=== PATIENT | male | born 1990 | race Caucasian/White ===

== ENCOUNTER 2021-09-06 10:17 | Inpatient (IN) | payer OTHER ==
[2021-09-06 12:39] LABS: BASO % 0.2 % (0-2.0); EOS % 1.3 % (0-4.5); HEMATOCRIT 44.2 % (35.4-49); HEMOGLOBIN 15.2 GM/dL (11.7-16.9); LYMPH % 17.9 % (8-40); MCH 32.8 pg (25.7-33.7); MCHC 34.3 g/dl (32.0-35.9); MEAN CELL VOLUME 95.7 fl (80-96); MEAN PLT VOLUME 8.5 fl (7.5-11.1); MONO % 12.8 % (3.8-10.2); NEUT % 67.8 % (42.8-82.8); PLATELET COUNT 139 10^3/uL (134-434); RBC 4.62 M/mm3 (4.00-5.60); WHITE BLOOD COUNT 6.4 K/mm3 (4.0-10.0)
[2021-09-06 12:45] LABS: URINE APPEARANCE CLEAR; URINE BILIRUBIN NEGATIVE (NEGATIVE); URINE COLOR YELLOW; URINE GLUCOSE (UA) NEGATIVE (NEGATIVE); URINE KETONE 1+ (NEGATIVE); URINE LEUK ESTERASE NEGATIVE (NEGATIVE); URINE NITRITE NEGATIVE (NEGATIVE); URINE PROTEIN NEGATIVE (NEGATIVE); URINE UROBILINOGEN 0.2 mg/dL (0.2-1.0)
[2021-09-06 12:54] LABS: COCAINE, UR NEGATIVE (NEGATIVE); OPIATES, URI NEGATIVE (NEGATIVE)
[2021-09-06 12:55] LABS: METHADONE, UR NEGATIVE (NEGATIVE); PHENCYCLIDINE,URINE NEGATIVE (NEGATIVE); URINE BARBITURATES NEGATIVE (NEGATIVE); URINE BENZODIAZEPINES NEGATIVE (NEGATIVE)
[2021-09-06 12:59] LABS: URINE AMPHETAMINES NEGATIVE (NEGATIVE)
[2021-09-06 14:05] LABS: CHLORIDE 101 mmol/L (98-107); SODIUM 135 mmol/L (136-145)
[2021-09-06 14:07] LABS: CALCIUM 9.4 mg/dL (8.5-10.1)
[2021-09-06 14:08] LABS: ALBUMIN 4.2 g/dl (3.4-5.0); ANION GAP 11 MMOL/L (8-16); BLOOD UREA NITROGEN 8.6 mg/dL (7-18); CO2 23 mmol/L (21-32); GLUCOSE,RANDOM 116 mg/dL (74-106); LIPASE 249 U/L (73-393)
[2021-09-06 14:11] LABS: CREATININE 0.9 mg/dL (0.55-1.3); SGOT/AST 313 U/L (15-37); SGPT/ALT 250 U/L (13-61)
[2021-09-06 14:12] LABS: BILIRUBIN,TOTAL 0.6 mg/dL (0.2-1); TOT PROT 8.5 g/dl (6.4-8.2)
[2021-09-06 14:14] LABS: ALK PHOS 138 U/L (45-117)
[2021-09-06] MEDS ORDERED: SODIUM CHLORIDE 1,000 ML IV STA (14:22)
[2021-09-06] MEDS ORDERED: diazePAM CARPU-JECT 10 MG/2 ML DISP.SYRIN IVPUSH ONE (14:22)
[2021-09-06] MEDS ORDERED: diazePAM CARPU-JECT 10 MG/2 ML DISP.SYRIN ONE (14:48)
[2021-09-06 18:38] LABS: INR 0.97 (0.83-1.09); PROTHROMBIN TIME (PATIENT) 11.4 SEC (9.7-13.0)
[2021-09-06] MEDS ORDERED: LORazepam 2 MG/ML SDV VIAL IVPUSH PRN (20:50)
[2021-09-06] MEDS ORDERED: LORazepam 1 MG TABLET PO PRN (21:34)
[2021-09-07] MEDS: LORazepam 1 MG TABLET PO SCH ×4 (01:28→17:07)
[2021-09-07 04:50] VITALS: BMI 28.7
[2021-09-07 09:45] LABS: BASO % 0.3 % (0-2.0); EOS % 0.9 % (0-4.5); HEMATOCRIT 41.8 % (35.4-49); HEMOGLOBIN 14.3 GM/dL (11.7-16.9); MCH 32.8 pg (25.7-33.7); MCHC 34.2 g/dl (32.0-35.9); MEAN CELL VOLUME 95.8 fl (80-96); MEAN PLT VOLUME 8.4 fl (7.5-11.1); MONO % 11.3 % (3.8-10.2); NEUT % 75.5 % (42.8-82.8); PLATELET COUNT 149 10^3/uL (134-434); RBC 4.37 M/mm3 (4.00-5.60); RDW 13.2 % (11.9-15.9); WHITE BLOOD COUNT 8.8 K/mm3 (4.0-10.0)
[2021-09-07 10:06] LABS: ALBUMIN 4.1 g/dl (3.4-5.0); BLOOD UREA NITROGEN 7.6 mg/dL (7-18); CALCIUM 9.2 mg/dL (8.5-10.1)
[2021-09-07] MEDS: FOLIC ACID 1 MG TABLET (FP) PO SCH (10:06)
[2021-09-07] MEDS: THIAMINE HCL 100 MG TABLET (FP) PO SCH (10:06)
[2021-09-07 10:09] LABS: CREATININE 0.8 mg/dL (0.55-1.3); PHOSPHOROUS 3.6 mg/dL (2.5-4.9)
[2021-09-07 10:11] LABS: BILIRUBIN,TOTAL 0.8 mg/dL (0.2-1); TOT PROT 8.1 g/dl (6.4-8.2)
[2021-09-07] MEDS ORDERED: LORazepam 2 MG/ML SDV VIAL IVPUSH ONE (11:45)
[2021-09-07] MEDS ORDERED: LORazepam 2 MG/ML SDV VIAL ONE ×2 (11:57→12:31)
[2021-09-07] MEDS ORDERED: LORazepam 2 MG/ML SDV VIAL IVPB ONE (12:00)
[2021-09-07] MEDS ORDERED: LORazepam 2 MG/ML SDV VIAL IM ONE ×2 (12:00→13:00)
[2021-09-07] MEDS ORDERED: HALOPERIDOL LACTATE 5 MG/ML ONE ×2 (12:02→12:30)
[2021-09-07] MEDS ORDERED: HALOPERIDOL LACTATE 5 MG/ML IM ONE ×2 (13:30→14:30)
[2021-09-07] MEDS ORDERED: FOLIC ACID INJECTION - 1 MG, THIAMINE HCL 100 MG, MULTIVIT INJECTION ADULT 10 ML in SOD... IVPB ONE (14:30)
[2021-09-07 15:18] LABS: HIV INTERPRETATION NEGATIVE (NEGATIVE)
[2021-09-07] MEDS ORDERED: LORazepam 2 MG/ML SDV VIAL IVPUSH PRN (18:17)
[2021-09-08] MEDS: LORazepam 1 MG TABLET PO SCH ×3 (00:09→10:34)
[2021-09-08] MEDS: THIAMINE HCL 100 MG TABLET (FP) PO SCH (10:34)
[2021-09-08] MEDS: FOLIC ACID 1 MG TABLET (FP) PO SCH (10:34)
[2021-09-08 13:26] LABS: HEMATOCRIT 40.7 % (35.4-49); MCH 32.8 pg (25.7-33.7); MCHC 34.4 g/dl (32.0-35.9); MEAN CELL VOLUME 95.1 fl (80-96); MEAN PLT VOLUME 7.9 fl (7.5-11.1); PLATELET COUNT 158 10^3/uL (134-434); RBC 4.27 M/mm3 (4.00-5.60); RDW 13.2 % (11.9-15.9); WHITE BLOOD COUNT 6.9 K/mm3 (4.0-10.0)
[2021-09-08 13:49] LABS: CALCIUM 8.7 mg/dL (8.5-10.1)
[2021-09-08 13:50] LABS: ALBUMIN 3.6 g/dl (3.4-5.0); BLOOD UREA NITROGEN 5.7 mg/dL (7-18); MAGNESIUM 2.5 mg/dL (1.8-2.4)
[2021-09-08 13:53] LABS: CREATININE 0.8 mg/dL (0.55-1.3)
[2021-09-08 13:54] LABS: PHOSPHOROUS 4.4 mg/dL (2.5-4.9)
[2021-09-08 13:55] LABS: BILIRUBIN,TOTAL 0.7 mg/dL (0.2-1); TOT PROT 7.4 g/dl (6.4-8.2)
[2021-09-08] MEDS ORDERED: POTASSIUM CHLORIDE ORAL LIQUID 20 MEQ/15 ML PO ONE (14:15)
[2021-09-08 14:36] VITALS: BP 135/88; PULSE 90; TEMP 97.7
[2021-09-09] MEDS ORDERED: LORazepam 0.5 MG TABLET PO PRN
[2021-09-09] MEDS ORDERED: LORazepam 0.5 MG TABLET PO SCH (05:00)
[2021-09-10] MEDS ORDERED: LORazepam 0.5 MG TABLET PO ONE (05:00)
== END 2021-09-08 15:10 | disposition other institution (70) | DRG 254 ==
LOC: JER 10:17 → JERBED 18:12 → J6S 09-07 00:26
PROVIDERS: ADMIT Internal Medicine; ATTEND Internal Medicine
DX: T18.108A Unspecified foreign body in esophagus causing other injury, initial encounter (principal); X58.XXXA Exposure to other specified factors, initial encounter; Y93.9 Activity, unspecified; Y92.89 Other specified places as the place of occurrence of the external cause; Y99.9 Unspecified external cause status; F10.239 Alcohol dependence with withdrawal, unspecified; K76.0 Fatty (change of) liver, not elsewhere classified; R74.01 Elevation of levels of liver transaminase levels
CPT/HCPCS: 36415; 70360-TC-FY; 70490-TC; 71250-TC; 74176-TC; 76705-TC; 80053; 80307; 81003; 83690; 83735; 84100; 85025; 85027; 85610; 86705; 86708; 86850; 86900; 86901; 87340; 87389; 87517; 87522; 93005; 93010; 99285-25; C9803; U0003; U0005

== ENCOUNTER 2021-09-08 15:47 | Inpatient (IN) | payer OTHER ==
[2021-09-08] MEDS ORDERED: MAGNESIUM CITRATE 300 ML BOTTLE PO PRN (17:47)
[2021-09-08] MEDS ORDERED: ONDANSETRON *ODT* 4 MG TABLET SL PRN (17:47)
[2021-09-08] MEDS ORDERED: METHOCARBAMOL 500 MG TABLET PO PRN (17:47)
[2021-09-08] MEDS ORDERED: hydrOXYzine PAMOATE 25 MG CAPSULE (FP) PO PRN (17:47)
[2021-09-08] MEDS ORDERED: IBUPROFEN 400 MG TABLET (FP) PO PRN (17:47)
[2021-09-08] MEDS ORDERED: MAGNESIUM HYDROX 2400MG/30ML ORAL SUSPENSION 30 ML CUP PO PRN (17:47)
[2021-09-08] MEDS ORDERED: MENTHOL/PHENOL 1 EACH UD MM PRN (17:47)
[2021-09-08] MEDS ORDERED: MAG HYDROX/AL HYDROX/SIMETH 30 ML UNIT-DOSE CUP PO PRN (17:47)
[2021-09-08] MEDS ORDERED: BISMUTH SUBSALICYLATE 524 MG/30 ML PO PRN (17:47)
[2021-09-08] MEDS ORDERED: ACETAMINOPHEN 325 MG TABLET (FP) PO PRN ×2 (17:47)
[2021-09-08 17:52] VITALS: BMI 26.6
[2021-09-08] MEDS ORDERED: diazePAM 5 MG TABLET PO PRN (17:52)
[2021-09-08] MEDS ORDERED: guaiFENesin 200 MG/10 ML 10 ML UNIT-DOSE CUPS PO PRN (17:54)
[2021-09-08] MEDS: diazePAM 5 MG TABLET PO SCH ×2 (20:42→22:21)
[2021-09-08] MEDS: THIAMINE HCL 100 MG TABLET (FP) PO SCH (22:20)
[2021-09-08] MEDS: MELATONIN 5 MG TABLETS PO SCH (22:20)
[2021-09-09] MEDS: diazePAM 5 MG TABLET PO SCH ×4 (05:22→22:09)
[2021-09-09] MEDS: PRENATAL VITAMINS W/ FOLIC ACID TABLET (FP) PO SCH (10:33)
[2021-09-09] MEDS: MELATONIN 5 MG TABLETS PO SCH (22:08)
[2021-09-09] MEDS: THIAMINE HCL 100 MG TABLET (FP) PO SCH (22:09)
[2021-09-10] MEDS: diazePAM 5 MG TABLET PO SCH ×2 (06:15→17:45)
[2021-09-10] MEDS: PRENATAL VITAMINS W/ FOLIC ACID TABLET (FP) PO SCH (10:26)
[2021-09-10] MEDS: THIAMINE HCL 100 MG TABLET (FP) PO SCH (22:06)
[2021-09-10] MEDS: MELATONIN 5 MG TABLETS PO SCH (22:07)
[2021-09-11] MEDS ORDERED: diazePAM 5 MG TABLET PO ONE (06:00)
[2021-09-11 09:29] VITALS: BP 114/70; PULSE 79; TEMP 97.7
[2021-09-11] MEDS: PRENATAL VITAMINS W/ FOLIC ACID TABLET (FP) PO SCH (09:39)
== END 2021-09-11 09:38 | disposition home or self-care (01) | DRG 775 ==
LOC: YASAS 15:47 → Y3N 17:51
PROVIDERS: ADMIT Allergy & Immunology; ATTEND Allergy & Immunology
PROC: HZ2ZZZZ Detoxification Services for Substance Abuse Treatment (ICD-10-PCS; principal; 2021-09-08)
DX: F10.230 Alcohol dependence with withdrawal, uncomplicated (principal); R00.0 Tachycardia, unspecified; Z87.891 Personal history of nicotine dependence
CPT/HCPCS: 36415; 86780

== ENCOUNTER 2022-04-28 19:39 | Emergency (ER) | payer OTHER ==
[2022-04-28 19:53] VITALS: BP 141/96; PULSE 100; RESP 20; TEMP 98.1; BMI 26.6
[2022-04-28 21:34] LABS: EOS % 4.1 % (0-4.5); HEMATOCRIT 44.1 % (35.4-49); HEMOGLOBIN 14.9 GM/dL (11.7-16.9); LYMPH % 43.5 % (8-40); MCH 31.5 pg (25.7-33.7); MCHC 33.7 g/dl (32.0-35.9); MEAN CELL VOLUME 93.5 fl (80-96); MONO % 9.6 % (3.8-10.2); NEUT % 41.8 % (42.8-82.8); PLATELET COUNT 268 10^3/uL (134-434); RBC 4.72 M/mm3 (4.00-5.60); RDW 14.1 % (11.9-15.9); WHITE BLOOD COUNT 5.2 K/mm3 (4.0-10.0)
[2022-04-28 21:57] LABS: CALCIUM 8.4 mg/dL (8.5-10.1)
[2022-04-28 21:58] LABS: ACTIVATED PTT 34.6 SECONDS (25.2-36.5); BLOOD UREA NITROGEN 5.2 mg/dL (7-18); INR 0.95 (0.83-1.09); PROTHROMBIN TIME (PATIENT) 10.9 SEC (9.7-13.0)
[2022-04-28 22:01] LABS: CREATININE 0.8 mg/dL (0.55-1.3)
== END 2022-04-29 00:07 | disposition home or self-care (01) ==
LOC: JER 19:39
DX: S21.139A Puncture wound without foreign body of unspecified front wall of thorax without penetration into thoracic cavity, initial encounter (principal); X99.9XXA Assault by unspecified sharp object, initial encounter
CPT/HCPCS: 36415; 71260-TC; 80048; 84484; 85025; 85610; 85730; 86850; 86900; 86901; 93005; 93010; 99284-25; Q9967

== ENCOUNTER 2022-05-21 13:24 | Emergency (ER) | payer OTHER ==
[2022-05-21 13:44] VITALS: BP 154/100; PULSE 92; RESP 18; TEMP 98.2; BMI 25.0
== END 2022-05-21 15:10 | disposition left against medical advice (07) ==
LOC: JER 13:24
DX: K92.0 Hematemesis (principal)
CPT/HCPCS: 99281-25

== ENCOUNTER 2022-05-28 08:43 | Emergency (ER) | payer OTHER ==
[2022-05-28 08:51] VITALS: BP 142/94; PULSE 86; RESP 18; TEMP 98.9; BMI 25.7
[2022-05-28] MEDS ORDERED: SODIUM CHLORIDE 0.9% 500 ML INFUS.BAG IV ONE ×2 (09:41→11:40)
[2022-05-28] MEDS ORDERED: ONDANSETRON 4 MG/2 ML VIAL IVPUSH ONE (09:41)
[2022-05-28] MEDS ORDERED: ONDANSETRON 4 MG/2 ML VIAL ONE (09:44)
[2022-05-28] MEDS ORDERED: LORazepam 2 MG/ML SDV VIAL IVPUSH ONE (10:00)
[2022-05-28 10:53] LABS: BASO % 0.6 % (0-2.0); EOS % 0.8 % (0-4.5); HEMATOCRIT 42.7 % (35.4-49); HEMOGLOBIN 14.6 GM/dL (11.7-16.9); MCHC 34.1 g/dl (32.0-35.9); MEAN CELL VOLUME 93.9 fl (80-96); MEAN PLT VOLUME 7.6 fl (7.5-11.1); MONO % 13.8 % (3.8-10.2); NEUT % 62.8 % (42.8-82.8); PLATELET COUNT 153 10^3/uL (134-434); RBC 4.55 M/mm3 (4.00-5.60); RDW 13.8 % (11.9-15.9); WHITE BLOOD COUNT 5.2 K/mm3 (4.0-10.0)
[2022-05-28 10:58] LABS: EPI CELLS 6 /uL (0-25.1); HYALINE CASTS 2 /uL (0-3.1); URINE APPEARANCE CLEAR; URINE BACTERIA 20 /uL (0-1359); URINE BILIRUBIN 1+ (NEGATIVE); URINE COLOR DK YELLOW; URINE GLUCOSE (UA) NEGATIVE (NEGATIVE); URINE KETONE 1+ (NEGATIVE); URINE LEUK ESTERASE NEGATIVE (NEGATIVE); URINE NITRITE NEGATIVE (NEGATIVE); URINE PROTEIN 1+ (NEGATIVE); URINE RBC 16 /uL (0-23.9); URINE WBC 9 /uL (0-25.8)
[2022-05-28 12:08] LABS: ALBUMIN 4.4 g/dl (3.4-5.0); BILIRUBIN,TOTAL 0.8 mg/dL (0.2-1); BLOOD UREA NITROGEN 8.2 mg/dL (7-18); CALCIUM 9.4 mg/dL (8.5-10.1); CREATININE 0.7 mg/dL (0.55-1.3)
== END 2022-05-28 14:30 | disposition home or self-care (01) ==
LOC: JER 08:43
PROC: 3E02329 Introduction of Other Anti-infective into Muscle, Percutaneous Approach (ICD-10-PCS; principal; 2022-05-28)
PROC: 3E033NZ Introduction of Analgesics, Hypnotics, Sedatives into Peripheral Vein, Percutaneous Approach (ICD-10-PCS; 2022-05-28)
PROC: 3E033GC Introduction of Other Therapeutic Substance into Peripheral Vein, Percutaneous Approach (ICD-10-PCS; 2022-05-28)
DX: N30.00 Acute cystitis without hematuria (principal); F10.10 Alcohol abuse, uncomplicated
CPT/HCPCS: 36415; 80053; 81003; 83690; 85025; 87086; 87491; 87591; 93005; 93010; 99284-25

== ENCOUNTER 2022-05-28 15:24 | Inpatient (IN) | payer OTHER ==
[2022-05-28 16:42] VITALS: BMI 24.1
[2022-05-28] MEDS ORDERED: ONDANSETRON *ODT* 4 MG TABLET SL PRN (20:18)
[2022-05-28] MEDS ORDERED: MAGNESIUM HYDROX 2400MG/30ML ORAL SUSPENSION 30 ML CUP PO PRN (20:18)
[2022-05-28] MEDS ORDERED: BENZOCAINE/MENTHOL (CHLORASEPTIC ) LOZENGE MM PRN (20:18)
[2022-05-28] MEDS ORDERED: IBUPROFEN 400 MG TABLET (FP) PO PRN (20:18)
[2022-05-28] MEDS ORDERED: IBUPROFEN 600 MG TABLET (FP) PO PRN (20:18)
[2022-05-28] MEDS ORDERED: MAG HYDROX/AL HYDROX/SIMETH 30 ML UNIT-DOSE CUP PO PRN (20:18)
[2022-05-28] MEDS ORDERED: MAGNESIUM CITRATE 300 ML BOTTLE PO PRN (20:18)
[2022-05-28] MEDS ORDERED: DICYCLOMINE HCL 10 MG CAPSULE PO PRN (20:18)
[2022-05-28] MEDS ORDERED: ACETAMINOPHEN 325 MG TABLET (FP) PO PRN ×2 (20:18)
[2022-05-28] MEDS ORDERED: LORazepam 1 MG TABLET PO PRN (20:18)
[2022-05-28] MEDS ORDERED: LOPERAMIDE HCL 2 MG CAPSULE PO PRN (20:18)
[2022-05-28] MEDS ORDERED: BISMUTH SUBSALICYLATE 524 MG/30 ML PO PRN (20:18)
[2022-05-28] MEDS: METHOCARBAMOL 500 MG TABLET PO PRN (22:35)
[2022-05-28] MEDS: THIAMINE HCL 100 MG TABLET (FP) PO SCH (22:35)
[2022-05-28] MEDS: MELATONIN 5 MG TABLETS PO SCH (22:35)
[2022-05-28] MEDS: LORazepam 2 MG TABLET PO SCH (22:35)
[2022-05-29] MEDS: LORazepam 2 MG TABLET PO SCH ×4 (06:18→22:09)
[2022-05-29 10:00] LABS: HEMATOCRIT 43.2 % (35.4-49); HEMOGLOBIN 14.3 GM/dL (11.7-16.9); MCH 31.3 pg (25.7-33.7); MCHC 33.2 g/dl (32.0-35.9); MEAN CELL VOLUME 94.5 fl (80-96); MEAN PLT VOLUME 8.4 fl (7.5-11.1); PLATELET COUNT 147 10^3/uL (134-434); RBC 4.57 M/mm3 (4.00-5.60); RDW 13.9 % (11.9-15.9); WHITE BLOOD COUNT 4.8 K/mm3 (4.0-10.0)
[2022-05-29] MEDS: PRENATAL VITAMINS W/ FOLIC ACID TABLET (FP) PO SCH (10:35)
[2022-05-29 10:47] LABS: BLOOD UREA NITROGEN 5.5 mg/dL (7-18); CALCIUM 9.1 mg/dL (8.5-10.1)
[2022-05-29 10:48] LABS: ALBUMIN 3.9 g/dl (3.4-5.0)
[2022-05-29 10:50] LABS: CREATININE 0.7 mg/dL (0.55-1.3)
[2022-05-29 10:52] LABS: BILIRUBIN,TOTAL 1.2 mg/dL (0.2-1); TOT PROT 7.6 g/dl (6.4-8.2)
[2022-05-29] MEDS: DOXYCYCLINE HYCLATE 100 MG TABLET PO SCH ×2 (11:49→18:13)
[2022-05-29 12:02] LABS: HIV INTERPRETATION NEGATIVE (NEGATIVE)
[2022-05-29] MEDS: METHOCARBAMOL 500 MG TABLET PO PRN (18:12)
[2022-05-29] MEDS: MELATONIN 5 MG TABLETS PO SCH (22:09)
[2022-05-29] MEDS: THIAMINE HCL 100 MG TABLET (FP) PO SCH (22:09)
[2022-05-30] MEDS: LORazepam 1 MG TABLET PO SCH ×4 (05:34→22:31)
[2022-05-30] MEDS: METHOCARBAMOL 500 MG TABLET PO PRN (10:17)
[2022-05-30] MEDS: PRENATAL VITAMINS W/ FOLIC ACID TABLET (FP) PO SCH (10:17)
[2022-05-30] MEDS: DOXYCYCLINE HYCLATE 100 MG TABLET PO SCH ×2 (10:17→18:00)
[2022-05-30 14:24] LABS: BLOOD UREA NITROGEN 6.6 mg/dL (7-18); CALCIUM 9.4 mg/dL (8.5-10.1)
[2022-05-30 14:26] LABS: CREATININE 0.8 mg/dL (0.55-1.3); TOT PROT 7.9 g/dl (6.4-8.2)
[2022-05-30 14:28] LABS: BILIRUBIN,TOTAL 0.7 mg/dL (0.2-1)
[2022-05-30] MEDS: MELATONIN 5 MG TABLETS PO SCH (22:30)
[2022-05-30] MEDS: THIAMINE HCL 100 MG TABLET (FP) PO SCH (22:30)
[2022-05-31] MEDS ORDERED: LORazepam 0.5 MG TABLET PO PRN
[2022-05-31] MEDS: LORazepam 0.5 MG TABLET PO SCH ×4 (05:42→22:33)
[2022-05-31] MEDS: DOXYCYCLINE HYCLATE 100 MG TABLET PO SCH ×2 (10:26→17:40)
[2022-05-31] MEDS: PRENATAL VITAMINS W/ FOLIC ACID TABLET (FP) PO SCH (10:26)
[2022-05-31] MEDS: THIAMINE HCL 100 MG TABLET (FP) PO SCH (22:33)
[2022-05-31] MEDS: MELATONIN 5 MG TABLETS PO SCH (22:33)
[2022-06-01] MEDS ORDERED: LORazepam 0.5 MG TABLET PO ONE (05:00)
[2022-06-01 06:28] VITALS: RESP 17
[2022-06-01 09:38] VITALS: BP 126/84; PULSE 98; TEMP 96.9
[2022-06-01] MEDS: PRENATAL VITAMINS W/ FOLIC ACID TABLET (FP) PO SCH (10:36)
[2022-06-01] MEDS: DOXYCYCLINE HYCLATE 100 MG TABLET PO SCH (10:36)
== END 2022-06-01 11:10 | disposition home or self-care (01) | DRG 775 ==
LOC: YASAS 15:24 → Y6N 21:38
PROVIDERS: ADMIT Allergy & Immunology; ATTEND Surgery
PROC: HZ2ZZZZ Detoxification Services for Substance Abuse Treatment (ICD-10-PCS; principal; 2022-05-28)
DX: F10.230 Alcohol dependence with withdrawal, uncomplicated (principal); N30.00 Acute cystitis without hematuria; I10 Essential (primary) hypertension; R74.01 Elevation of levels of liver transaminase levels; Z87.891 Personal history of nicotine dependence; Z28.310 Unvaccinated for COVID-19; Z28.9 Immunization not carried out for unspecified reason; Z88.8 Allergy status to other drugs, medicaments and biological substances
CPT/HCPCS: 36415; 80053; 85027; 86780; 87389; 87811; C9803-CS; U0003; U0005

== ENCOUNTER 2023-08-24 17:47 | Emergency (ER) | payer OTHER ==
[2023-08-24 18:08] VITALS: RESP 18; BMI 26.6
[2023-08-24] MEDS ORDERED: ACETAMINOPHEN 1000 MG/100 ML BAG IVPB ONE ×2 (18:28→18:43)
[2023-08-24] MEDS ORDERED: FAMOTIDINE 20 MG/50 ML IVPB 20 MG/50 ML MG IVPB ONE ×2 (18:43→18:55)
[2023-08-24] MEDS ORDERED: MAG HYDROX/AL HYDROX/SIMETH 30 ML UNIT-DOSE CUP PO ONE (18:43)
[2023-08-24] MEDS ORDERED: LACTATED RINGERS SOLUTION 1000 ML INFUS.BAG IV ONE (18:43)
[2023-08-24] MEDS ORDERED: ONDANSETRON 4 MG/2 ML VIAL IVPUSH ONE (18:43)
[2023-08-24] MEDS ORDERED: MAG HYDROX/AL HYDROX/SIMETH 30 ML UNIT-DOSE CUP ONE (18:54)
[2023-08-24] MEDS ORDERED: ONDANSETRON 4 MG/2 ML VIAL ONE (18:54)
[2023-08-24] MEDS ORDERED: ACETAMINOPHEN INJECTION 100 ML IVPB ONE (18:54)
[2023-08-24 19:41] LABS: BASO % 1.4 % (0-2.0); EOS % 0.8 % (0-4.5); HEMATOCRIT 45.9 % (35.4-49); HEMOGLOBIN 15.5 GM/dL (11.7-16.9); LYMPH % 20.7 % (8-40); MCH 32.1 pg (25.7-33.7); MCHC 33.7 g/dl (32.0-35.9); MEAN CELL VOLUME 95.3 fl (80-96); MEAN PLT VOLUME 8.3 fl (7.5-11.1); MONO % 12.7 % (3.8-10.2); NEUT % 64.4 % (42.8-82.8); PLATELET COUNT 123 10^3/uL (134-434); RBC 4.82 M/mm3 (4.00-5.60); RDW 14.2 % (11.9-15.9); WHITE BLOOD COUNT 4.6 K/mm3 (4.0-10.0)
[2023-08-24 19:51] LABS: INR 0.91 (0.83-1.09); PROTHROMBIN TIME (PATIENT) 10.6 SEC (9.7-13.0)
[2023-08-24 19:54] LABS: ACTIVATED PTT 27.8 SECONDS (25.2-36.5)
[2023-08-24 20:21] LABS: POTASSIUM 3.9 mmol/L (3.5-5.1)
[2023-08-24 20:23] LABS: ALBUMIN 4.1 g/dl (3.4-5.0); BLOOD UREA NITROGEN 10.6 mg/dL (7-18); CALCIUM 9.1 mg/dL (8.5-10.1)
[2023-08-24 20:26] LABS: CREATININE 0.8 mg/dL (0.55-1.3)
[2023-08-24 20:27] LABS: BILIRUBIN,TOTAL 0.8 mg/dL (0.2-1); TOT PROT 8.4 g/dl (6.4-8.2)
[2023-08-24 23:20] VITALS: BP 103/75; PULSE 72; TEMP 98.5
== END 2023-08-25 00:12 ==
LOC: JER 17:47
PROC: 3E033GC Introduction of Other Therapeutic Substance into Peripheral Vein, Percutaneous Approach (ICD-10-PCS; principal; 2023-08-24)
PROC: 3E033GC Introduction of Other Therapeutic Substance into Peripheral Vein, Percutaneous Approach (ICD-10-PCS; 2023-08-24)
PROC: 3E033NZ Introduction of Analgesics, Hypnotics, Sedatives into Peripheral Vein, Percutaneous Approach (ICD-10-PCS; 2023-08-24)
DX: F10.230 Alcohol dependence with withdrawal, uncomplicated (principal); K92.0 Hematemesis; R10.9 Unspecified abdominal pain; R06.02 Shortness of breath
CPT/HCPCS: 36415; 74177-TC; 80053; 82272; 83690; 85025; 85610; 85730; 86850; 86900; 86901; 93005; 93010; 99285-25; Q9967

== ENCOUNTER 2023-08-25 01:27 | Inpatient (IN) | payer OTHER ==
[2023-08-25 01:41] VITALS: BMI 25.9
[2023-08-25] MEDS ORDERED: IBUPROFEN 600 MG TABLET (FP) PO PRN (01:57)
[2023-08-25] MEDS ORDERED: POLYETHYLENE GLYCOL (HEALTHYLAX) 3350 17 GM PACKET PO PRN (01:57)
[2023-08-25] MEDS ORDERED: BENZONATATE 200 MG CAPSULE PO PRN (01:57)
[2023-08-25] MEDS ORDERED: NALOXONE HCL (KLOXXADO) 8 MG SPRAY NS PRN (01:57)
[2023-08-25] MEDS ORDERED: NALOXONE HCL 0.4 MG/ML VIAL IM PRN (01:57)
[2023-08-25] MEDS ORDERED: MAG HYDROX/AL HYDROX/SIMETH 30 ML UNIT-DOSE CUP PO PRN (01:57)
[2023-08-25] MEDS ORDERED: ACETAMINOPHEN 325 MG TABLET (FP) PO PRN (01:57)
[2023-08-25] MEDS ORDERED: DICYCLOMINE HCL 10 MG CAPSULE PO PRN (01:57)
[2023-08-25] MEDS ORDERED: BENZOCAINE/MENTHOL (CHLORASEPTIC ) LOZENGE MM PRN (01:57)
[2023-08-25] MEDS ORDERED: IBUPROFEN 400 MG TABLET (FP) PO PRN (01:57)
[2023-08-25] MEDS ORDERED: guaiFENesin 600 MG TABLET.ER (FP) PO PRN (01:57)
[2023-08-25] MEDS ORDERED: BISMUTH SUBSALICYLATE 524 MG/30 ML PO PRN (01:57)
[2023-08-25] MEDS ORDERED: ONDANSETRON *ODT* 4 MG TABLET SL PRN (01:57)
[2023-08-25] MEDS ORDERED: LOPERAMIDE HCL 2 MG CAPSULE PO PRN (01:57)
[2023-08-25] MEDS ORDERED: MAGNESIUM HYDROX 2400MG/30ML ORAL SUSPENSION 30 ML CUP PO PRN (01:57)
[2023-08-25] MEDS ORDERED: LORazepam 1 MG TABLET PO PRN (02:10)
[2023-08-25] MEDS: LORazepam 2 MG TABLET PO SCH ×4 (05:29→22:13)
[2023-08-25] MEDS: PRENATAL VITAMINS W/ FOLIC ACID TABLET (FP) PO SCH (10:20)
[2023-08-25 13:23] LABS: POTASSIUM 3.9 mmol/L (3.5-5.1)
[2023-08-25 13:24] LABS: HEMATOCRIT 39.9 % (35.4-49); HEMOGLOBIN 13.2 GM/dL (11.7-16.9); MCH 32.1 pg (25.7-33.7); MEAN CELL VOLUME 97.1 fl (80-96); MEAN PLT VOLUME 9.2 fl (7.5-11.1); PLATELET COUNT 102 10^3/uL (134-434); RBC 4.11 M/mm3 (4.00-5.60); RDW 14.3 % (11.9-15.9); WHITE BLOOD COUNT 3.6 K/mm3 (4.0-10.0)
[2023-08-25 13:27] LABS: ALBUMIN 3.7 g/dl (3.4-5.0); BLOOD UREA NITROGEN 7.4 mg/dL (7-18)
[2023-08-25 13:30] LABS: CREATININE 0.7 mg/dL (0.55-1.3)
[2023-08-25 13:32] LABS: TOT PROT 7.3 g/dl (6.4-8.2)
[2023-08-25] MEDS: THIAMINE HCL 100 MG TABLET (FP) PO SCH (22:13)
[2023-08-25] MEDS: MELATONIN 5 MG TABLETS PO SCH (22:14)
[2023-08-26] MEDS: LORazepam 1 MG TABLET PO SCH ×4 (05:29→22:11)
[2023-08-26] MEDS: PRENATAL VITAMINS W/ FOLIC ACID TABLET (FP) PO SCH (10:06)
[2023-08-26] MEDS: hydrOXYzine PAMOATE 25 MG CAPSULE (FP) PO PRN ×2 (10:06→17:03)
[2023-08-26] MEDS: METHOCARBAMOL 500 MG TABLET PO PRN ×2 (10:06→22:11)
[2023-08-26] MEDS: MELATONIN 5 MG TABLETS PO SCH (22:10)
[2023-08-26] MEDS: THIAMINE HCL 100 MG TABLET (FP) PO SCH (22:12)
[2023-08-26 23:54] VITALS: RESP 18
[2023-08-27] MEDS ORDERED: LORazepam 0.5 MG TABLET PO PRN
[2023-08-27] MEDS: hydrOXYzine PAMOATE 25 MG CAPSULE (FP) PO PRN (00:33)
[2023-08-27] MEDS: LORazepam 0.5 MG TABLET PO SCH ×2 (04:42→10:09)
[2023-08-27] MEDS: METHOCARBAMOL 500 MG TABLET PO PRN (04:43)
[2023-08-27 08:45] VITALS: BP 129/99; PULSE 122; TEMP 98.4
[2023-08-27] MEDS: PRENATAL VITAMINS W/ FOLIC ACID TABLET (FP) PO SCH (10:09)
[2023-08-28] MEDS ORDERED: LORazepam 0.5 MG TABLET PO ONE (05:00)
== END 2023-08-27 09:45 | disposition home or self-care (01) | DRG 775 ==
LOC: YASAS 01:27 → Y6N 02:18
PROVIDERS: ADMIT Allergy & Immunology; ATTEND Surgery
PROC: HZ2ZZZZ Detoxification Services for Substance Abuse Treatment (ICD-10-PCS; principal; 2023-08-25)
DX: F10.230 Alcohol dependence with withdrawal, uncomplicated (principal); I10 Essential (primary) hypertension; Z28.310 Unvaccinated for COVID-19; Z28.9 Immunization not carried out for unspecified reason; Z88.8 Allergy status to other drugs, medicaments and biological substances
CPT/HCPCS: 36415; 74177-TC; 80053; 80307; 82272; 83690; 84450; 85025; 85027; 85610; 85730; 86780; 86850; 86900; 86901; 87635; 87811; 93005; 93010; 99285-25; Q9967